=== PATIENT | male | born 1980 | race American Indian/Alaskan Native ===

== ENCOUNTER 2020-11-29 18:13 | Emergency (ER) | payer MEDICAID ==
[2020-11-29] MEDS ORDERED: Acetaminophen/HYDROcodone 325-5 MG Tab PO ONE (18:14)
[2020-11-29] MEDS ORDERED: Lidocaine 2% Viscous Solution 15 ML Cup TOP ONE (18:40)
--- NOTE | 2020-11-29 18:44 | EDM.PDOC ---
ED HPI GENERAL MEDICAL PROBLEM - General Chief Complaint: Skin Complaint Stated Complaint: BACK PAIN Time Seen by Provider: 11/29/20 18:35 Source of Information: Reports: Patient History Limitations: Reports: No Limitations - History of Present Illness INITIAL COMMENTS - FREE TEXT/NARRATIVE: 40 yo NA male presents with skin pain from wounds incurred recently while undergoing a sports medicine specialist ceremony in which he was suspended from points on each lateral shoulder and 2 points in his upper back for about 30 min. He has done this several times before, but says this is bothering him more than usual. He says his last tetanus was 4-5 yrs ago. Onset: Sudden Duration: Day(s):, Constant Location: Reports: Chest Quality: Reports: Burning Severity: Moderate Improves with: Reports: None Worsens with: Reports: None Context: Reports: Trauma Associated Symptoms: Reports: No Other Symptoms Treatments SENIOR BENEFITS ANALYST: Reports: Other (see below) (none) ED ROS GENERAL - Review of Systems Review Of Systems: See Below Constitutional: Reports: No Symptoms HEENT: Reports: No Symptoms Respiratory: Reports: No Symptoms Cardiovascular: Reports: No Symptoms GI/Abdominal: Reports: No Symptoms : Reports: No Symptoms Musculoskeletal: Reports: No Symptoms Skin: Reports: Wound (both lateral shoulders and upper back bilat) Neurological: Reports: No Symptoms Psychiatric: Reports: No Symptoms ED EXAM, SKIN/RASH Exam: See Below Exam Limited By: No Limitations General Appearance: Alert, WD/WN, No Apparent Distress Eye Exam: Bilateral Eye: Normal Inspection Ears: Normal External Exam, Normal Canal, Hearing Grossly Normal Nose: Normal Inspection, No Blood Throat/Mouth: Normal Inspection, Normal Lips, Normal Voice, No Airway Compromise Head: Atraumatic, Normocephalic Neck: Normal Inspection Respiratory/Chest: No Respiratory Distress, No Accessory Muscle Use Extremities: Normal Inspection Neurological: Alert, Oriented, CN II-XII Intact, Normal Cognition, No Motor/Sensory Deficits Psychiatric: Normal Affect, Normal Mood Skin: Warm, Dry, Normal Color, No Rash, Wound/Incision (avulsion type wounds of similar size to the lateral shoulders bilat and to the upper back around the upper scapulae bilat. No surrounding erythema or purulent drainage. ), Other (multiple scars in the same areas from prior experiences such as this. ). No: Intact, Erythema, Increased Warmth Associated features: No: Warmth, Lymphangitis, Inflammation Course - Orders/Labs/Meds Meds: Medications Discontinued Medications Generic Name Dose Route Start Last Admin Trade Name Pat PRN Reason Stop Dose Admin Ketorolac Tromethamine 30 mg 11/29/20 18:48 11/29/20 18:57 Ketorolac 30 Mg/Ml Sdv IM 11/29/20 18:49 30 mg ONETIME ONE Administration Lidocaine HCl 15 ml 11/29/20 18:40 11/29/20 18:56 Lidocaine 2% Viscous Solution 15 Ml Cup TOP 11/29/20 18:41 15 ml ONETIME ONE Administration - Re-Assessments/Exams Free Text/Narrative Re-Assessment/Exam: 11/29/20 19:45 Partial relief only with current tx. Departure - Departure Time of Disposition: 19:50 Disposition: Home, Self-Care 01 Condition: Good Clinical Impression: Skin avulsion - Discharge Information *PRESCRIPTION DRUG MONITORING PROGRAM REVIEWED*: Not Applicable *COPY OF PRESCRIPTION DRUG MONITORING REPORT IN PATIENT RYANNE: Not Applicable Referrals: PCP,None [Primary Care Provider] - Forms: ED Department Discharge Additional Instructions: Clean wounds twice daily with soap and water. Dry. Apply antibiotic ointment and a new dressing. Recheck for signs of infection. Take [place] every 4 hrs at night for pain relief. Add ibuprofen 600 mg every 6 hrs for added relief after 1 am tonight. During the day use a combination of ibuprofen and acetaminophen 1000 mg every 6 hrs.
[2020-11-29] MEDS ORDERED: Ketorolac 30 MG/ML SDV IM ONE (18:48)
[2020-11-29] MEDS ORDERED: Bacitracin Oint 1 GM U/D Packet TOP ONE (19:47)
== END 2020-11-29 20:25 | disposition home or self-care (01) ==
LOC: FB.ED 18:13
DX: S41.002A Unspecified open wound of left shoulder, initial encounter (principal); S41.001A Unspecified open wound of right shoulder, initial encounter; S21.202A Unspecified open wound of left back wall of thorax without penetration into thoracic cavity, initial encounter; S21.201A Unspecified open wound of right back wall of thorax without penetration into thoracic cavity, initial encounter; X58.XXXA Exposure to other specified factors, initial encounter
CPT/HCPCS: 96372; 99283; A9270; J1885